=== PATIENT | female | born 1930 | race Caucasian/White ===

== ENCOUNTER 2018-02-09 06:00 | Day surgery (SDC) | payer OTHER ==
[~2018-02-09] VITALS: Ht 175.3 cm; Wt 83.0 kg
[~2018-02-09 06:00] MED LIST: AMARYL PO; LEXAPRO5 MG PO; LOSARTAN POTASS25 MG PO; SIMVASTATIN10 MG PO; TARKA PO
== END 2018-02-10 08:00 | disposition home or self-care (01) ==
LOC: CIR.AMB 06:00 → SURH 07:00 → EDSTATUS 13:30 → SURG 15:41 → O/R 15:41 → CIR.AMB 02-10 08:00 → SURG 02-10 10:51
DX: C50.112 Malignant neoplasm of central portion of left female breast (principal)